=== PATIENT | female | born 1960 | race Caucasian/White ===

== ENCOUNTER 2017-03-18 05:41 | Emergency (ER) | payer MEDICAID ==
[2017-03-18 05:50] VITALS: BP 109/71; BMI 25.5
--- NOTE | 2017-03-18 07:05 | DR.GENAD ---
HPI - PCP Primary Care Physician: nfd - Complaint/Symptoms Chief Complaint:: pt states" I been sick for 4 days I got nausea and vomiting, cold and hot chills i don't feel good at all I'm sick" - Nurses notes reviewed Nurses Notes Review: Yes - Source History Provided: Patient - Mode of Arrival Mode of Arrival: Ambulatory - Timing Onset of Chief Complaint: 03/14/17 Came on: Suddenly - Duration Duration: Constant Duration: Days - Severity Severity: Moderate PMH - PMH Past Medical History: Yes Past Medical History: Diabetes, GERD, Hypertension Past Surgical History: Yes Surgical History: , Hysterectomy, Joint Replacement Past Surgical History Comment: rt hip 2005 - Family History History of Family Medical Conditions: Yes Family Medical History: Diabetes Mellitus, [place], Heart Failure, Hypertension - Social History Does any household member use tobacco: Yes Alcohol Use: None Do you use any recreational Drugs:: No Lives With: Family Lives Where: Home - infectious screening In the last 2 months have you had wt loss of >10#?: NO Have you had fever, night sweats or hemotysis?: No Have you traveled outside the country in the last 6 months?: No Isolation: Standard PE - Vital Signs Vitals: Temperature 98.6 F Pulse Rate 85 Respiratory Rate 18 Blood Pressure 109/71 O2 Sat by Pulse Oximetry 98 ROR - Labs Reviewed Result Diagrams: 03/18/17 07:20 03/18/17 07:20 Laboratory: WBC 9.5 X10^3/uL (3.6-10.0) 03/18/17 07:20 RBC 5.36 X10^6/uL (3.5-5.4) 03/18/17 07:20 Hgb 17.0 g/dL (12.0-16.0) H 03/18/17 07:20 Hct 48.0 % (36.0-47.0) H 03/18/17 07:20 MCV 89.6 fL (80.0-100.0) 03/18/17 07:20 MCH 31.7 pg (27.0-34.0) 03/18/17 07:20 MCHC 35.3 g/dL (33.0-35.0) H 03/18/17 07:20 RDW 14.1 % (11.6-16.5) 03/18/17 07:20 Plt Count 271 X10^3/uL (150.0-450.0) 03/18/17 07:20 MPV 8.3 fL (7.4-11.0) 03/18/17 07:20 Neut % 55.6 % (42.0-75.0) 03/18/17 07:20 Lymph % 38.0 % (21.0-51.0) 03/18/17 07:20 [place] % 5.4 % (0.0-13.0) 03/18/17 07:20 Eos % 0.3 % (0.9-2.9) L 03/18/17 07:20 Baso % 0.7 % (0.2-1.0) 03/18/17 07:20 Neut # 5.3 x10^3/uL (2.2-4.8) H 03/18/17 07:20 Lymph # 3.6 X10^3/uL (1.3-2.9) H 03/18/17 07:20 [place] # 0.5 x10^3/uL (0.3-0.8) 03/18/17 07:20 Eos # 0.0 x10^3/uL (0.0-0.2) 03/18/17 07:20 Baso # 0.1 X10^3/uL (0.0-0.1) 03/18/17 07:20 Absolute Nucleated RBC 0.2 /100WBC 03/18/17 07:20 Sodium 132 mmol/L (136-145) L 03/18/17 07:20 Corrected Sodium 133 mmol/L (136-145) L 03/18/17 07:20 Potassium 3.2 mmol/L (3.5-5.1) L 03/18/17 07:20 Chloride 93 mmol/L (98-107) L 03/18/17 07:20 Carbon Dioxide 32.3 mmol/L (21-32) H 03/18/17 07:20 BUN 6 mg/dL (7-18) L 03/18/17 07:20 Creatinine 0.86 mg/dL (0.55-1.02) 03/18/17 07:20 Est GFR (MDRD) Af Amer > 60 (>60) 02/02/18 07:20 Est GFR (MDRD) Non-Af > 60 (>60) 03/18/17 07:20 Glucose 131 mg/dL (65-99) H 03/18/17 07:20 Calcium 9.9 mg/dL (8.5-10.1) 03/18/17 07:20 Corrected Calcium TNP 03/18/17 07:20 Total Bilirubin 0.50 mg/dL (0.2-1.0) 03/18/17 07:20 AST 32 Units/L (15-37) 03/18/17 07:20 ALT 22 Units/L (12-78) 03/18/17 07:20 Alkaline Phosphatase 73 Units/L (46-116) 03/18/17 07:20 Total Protein 8.6 g/dL (6.4-8.2) H 03/18/17 07:20 Albumin 4.1 g/dL (3.4-5.0) 03/18/17 07:20 Globulin 4.5 g/dL (2.5-4.5) 03/18/17 07:20 Albumin/Globulin Ratio 0.9 Ratio (1.1-2.1) L 03/18/17 07:20 Amylase 43 Units/L (25-115) 03/18/17 07:20 Lipase 84 Units/L (73-393) 03/18/17 07:20 Influenza Type A (PCR) Negative (NEGATIVE) 03/18/17 07:13 Influenza Type B (PCR) Negative (NEGATIVE) 03/18/17 07:13 - Discharge Plan Condition: Stable Prescriptions: Ketorolac Tromethamine [Toradol Tab] 10 mg PO Q8H PRN #12 tab PRN Reason: Pain Ondansetron [Zofran ODT 8 mg] 8 mg PO Q8H PRN #15 tab PRN Reason: Nausea/Vomiting Ranitidine HCl [ZANTAC TAB 150 MG *] 150 mg PO BID #60 tab - Follow ups/Referrals Follow ups/Referrals: NFD,None [Primary Care Provider] - 3 days - Instructions Instructions: Abdominal Pain, Adult, [id number] Additional Instructions: RETURN TO ED IF WORSE.
[2017-03-18] MEDS ORDERED: ZOFRAN INJ 4 MG VIAL IVP ONE (07:10)
[2017-03-18] MEDS ORDERED: DEMEROL INJ IVP ONE (07:10)
--- NOTE | 2017-03-18 07:37 | CT ---
HISTORY: Nausea, vomiting, abdominal pain Study: CT abdomen pelvis without contrast Comparison: None Technique: Axial noncontrast images with coronal and sagittal reformats. Dose reduction procedures we re used with mA/kv adjusted for body size. The examination is limited due to the lack of intravenous contrast. Findings: The lung bases are clear. The liver, spleen, adrenal glands, and pancreas are within normal limits to the limitations of an unenhanced examination. No opaque stones are visible within the gallbladder. T he kidneys are unobstructed and without stones. No ureteral calculi are identified. No intraperitonea l or retroperitoneal lymphadenopathy of significance is identified. The appendix is not identified wi th absolute certainty. There are no secondary signs of appendicitis. There are no findings suggestive of diverticulitis or colitis. Examination of the pelvis demonstrated no evidence for pelvic masses, pelvic fluid, or pelvic lymphadenopathy. No bladder abnormality is identified. No lytic or blastic sk eletal lesions are identified. IMPRESSION: No significant abnormality to the limitations of an examination performed without intravenous contras t Reported By:
[2017-03-18 07:38] LABS: BASOPHILS # (AUTO) 0.1 X10^3/uL (0.0-0.1); BASOPHILS % (AUTO) 0.7 % (0.2-1.0); EOSINOPHILS % (AUTO) 0.3 % (0.9-2.9); LYMPHOCYTES # (AUTO) 3.6 X10^3/uL (1.3-2.9); MEAN CORPUSCULAR HEMOGLOBIN 31.7 pg (27.0-34.0); MEAN CORPUSCULAR HGB CONC 35.3 g/dL (33.0-35.0); MEAN CORPUSCULAR VOLUME 89.6 fL (80.0-100.0); MEAN PLATELET VOLUME 8.3 fL (7.4-11.0); MONOCYTES # (AUTO) 0.5 x10^3/uL (0.3-0.8); MONOCYTES % (AUTO) 5.4 % (0.0-13.0); NEUTROPHILS # (AUTO) 5.3 x10^3/uL (2.2-4.8); NEUTROPHILS % (AUTO) 55.6 % (42.0-75.0); PLATELET COUNT 271 X10^3/uL (150.0-450.0); RED BLOOD COUNT 5.36 X10^6/uL (3.5-5.4); RED CELL DISTRIBUTION WIDTH 14.1 % (11.6-16.5); WHITE BLOOD COUNT 9.5 X10^3/uL (3.6-10.0)
[2017-03-18 07:44] LABS: ALANINE AMINOTRANSFERASE 22 Units/L (12-78); ALBUMIN 4.1 g/dL (3.4-5.0); ALKALINE PHOSPHATASE 73 Units/L (46-116); AMYLASE 43 Units/L (25-115); ASPARTATE AMINO TRANSFERASE 32 Units/L (15-37); BLOOD UREA NITROGEN 6 mg/dL (7-18); CALCIUM 9.9 mg/dL (8.5-10.1); CARBON DIOXIDE 32.3 mmol/L (21-32); CHLORIDE 93 mmol/L (98-107); COR NA(FOR HYPERGLY) 133 mmol/L (136-145); CREATININE 0.86 mg/dL (0.55-1.02); LIPASE 84 Units/L (73-393); SODIUM 132 mmol/L (136-145); TOTAL PROTEIN 8.6 g/dL (6.4-8.2); eGFR BLACK RACES > 60 (>60); eGFR NON BLACK RACES > 60 (>60)
[2017-03-18] MEDS ORDERED: TORADOL 60 MG VIAL IM ONE (07:44)
[2017-03-18] MEDS ORDERED: TORADOL 60 MG VIAL ONE (08:20)
[2017-03-18] MEDS ORDERED: ZOFRAN INJ 4 MG VIAL ONE (08:35)
[2017-03-18] MEDS ORDERED: ZOFRAN INJ 4 MG VIAL IM ONE (08:40)
[2017-03-18 09:07] LABS: BILIRUBIN,URINE NEGATIVE (NEGATIVE); BLOOD/HEMOGLOBIN,URINE NEGATIVE (NEGATIVE); GLUCOSE, URINE NEGATIVE (NEGATIVE); KETONES,URINE NEGATIVE (NEGATIVE); LEUKOCYTE ESTERASE ,URINE NEGATIVE (NEGATIVE); NITRITES,URINE NEGATIVE (NEGATIVE); PROTEIN,URINE NEGATIVE (NEGATIVE); UROBILINOGEN,URINE NORMAL (NORMAL)
[2017-03-18 09:09] LABS: APPEARANCE,URINE CLEAR (CLEAR); COLOR,URINE YELLOW (YELLOW)
[2017-03-18 09:15] LABS: BACTERIA,URINE TRACE /HPF (NEGATIVE); RBC,URINE NONE SEEN /HPF (NEGATIVE); SQUAMOUS EPITHELIAL CELL,UR MANY /HPF (NEGATIVE)
== END 2017-03-18 08:53 | disposition home or self-care (01) ==
LOC: ER 05:41
DX: R10.84 Generalized abdominal pain (principal); R11.2 Nausea with vomiting, unspecified
CPT/HCPCS: 36415; 74176; 80053; 81001; 82150; 83690; 85025; 87502; 96372; 99282; 99283; J1885; J2405

== ENCOUNTER 2017-03-25 18:30 | Inpatient (IN) | payer MEDICAID ==
--- NOTE | 2017-03-25 19:04 | DR.EXTPAIN ---
HPI - Time seen Time seen: 18:55 - PCP Primary Care Physician: CARLOS - HPI Comment HPI Comment: HAVING CHEST PAIN, LOWER BACK PAIN, HEADACHE AND NECK DISCOMFORT. NO FEVER. SHE IS WEAK. NO FEVER. - Complaint/Symptoms Chief Complaint Doctor Comments: FELL FROM HER BED LAST NIGHT. WAS WEAK AND LAY THERE TILL SOMEONE FOUND HER BEFORE COMING TO ED. Chief Complaint:: PATIENT STATED THAT SHE WAS IN HER BEDROOM LAST NIGHT AND FELL AND WAS TO WEAK TO GET UP. SOMEONE FOUND HER JUST 25 MINS PRIOR TO ARRIVAL TO THE ED. - Nurses notes reviewed Nurses Notes Review: Yes - Source History Provided: Patient - Mode of arrival Mode of Arrival: EMS - Timing Onset of Chief Complaint: 03/25/17 - Context History of: Arthritis - Associated signs and symptoms Associated Signs and Symptoms: Pain PMH - PMH Past Medical History: Yes Past Medical History: Diabetes, GERD, Hypertension Past Surgical History: Yes Surgical History: , Hysterectomy, Joint Replacement - Family History History of Family Medical Conditions: Yes Family Medical History: Diabetes Mellitus, [place], Heart Failure, Hypertension - Social History Does patient currently use any type of tobacco product: No Have you used tobacco products in the last 12 months: No Type of Tobacco Use: None Does any household member use tobacco: No Alcohol Use: None Do you use any recreational Drugs:: No Lives With: Alone Lives Where: Home - infectious screening In the last 2 months have you had wt loss of >10#?: NO Have you had fever, night sweats or hemotysis?: No Have you traveled outside the country in the last 6 months?: No Isolation: Standard ROS - Review of Systems Constitutional: Weakness, Fatigue. negative: Chills, Fever Eyes: negative: Eye Pain, Discharge ENTM: No Symptoms Reported Respiratoy: No Symptoms Reported. negative: Productive Cough, Non-Productive Cough, Short of Breath, Wheezing, Hemoptysis Cardiovascular: Chest Pain Gastrointestinal/Abdominal: No Symptoms Reported Genitourinary: No Symptoms Reported Neurological: Headache, Weakness, Dizziness Musculoskeletal: Back Pain, Muscle Pain, Neck Pain, Chest wall Integumentary: Change in Color Hematologic/Lymphatic: Easy Bruising Endocrine: No Symptoms Reported All Other Systems: Reviewed and Negative PE - Vital Signs Vitals: Temperature 98.2 F Pulse Rate 98 Respiratory Rate 20 Blood Pressure 129/79 O2 Sat by Pulse Oximetry 95 - General Limitations: No Limitations General Appearance: Alert - Head Head Exam: Normal Inspection - Eyes Eye exam: Normal Appearance, PERRL, EOMI. negative: Scleral Icterus, Conjunctival Injection - ENT ENT Exam: Normal External Ear Exam - Neck Neck Exam: Trachea Midline, Tenderness (POSTERIOR LOWER NECK TENDER. ). negative: Meningismus, Lymphadenopathy - Chest Chest Inspection: Symmetric Chest Wall Rise - Respiratory Respiratory Exam: Normal Lung Sounds Bilat, Chest Wall Tenderness Respiratory Exam: Bilateral Clear to Auscultation - Cardiovascular Cardiovascular Exam: Regular Rate, Normal Rhythm, Normal Heart Sounds - Abdominal Exam Abdominal Exam: Normal Bowel Sounds, Soft. negative: Tenderness - Extremities Extremities Exam: Normal Inspection - Back Back Exam: Paraspinal Tenderness, Vertebral Tenderness (LOWER BACK.) - Neurological Neurological Exam: Alert, Oriented X3, CN II-XII Intact. negative: Motor Sensory Deficit - Psychiatric Psychiatric Exam: Anxious - Skin Skin Exam: Erythema Type of Lesion: negative: Laceration MDM - Differential Diagnosis Differential Diagnosis: Contusion, Fracture, Sprain (GENERALIZE WEAKNESS, CT, DEHYDRATION) Course - Treatment Treatment: SEE ORDERS. - Consultation Consultation Comments: DISCUSS PATIENT WITH DR. YUAN, HE WILL ACCEPT PATIENT. - Education/Counseling Education/Counseling: Patient, Education Educated On: Treatment, Diagnosis, Needs for Follow Up ROR - Labs Reviewed Laboratory Results Reviewed?: Yes Result Diagrams: 03/27/17 04:20 03/27/17 04:20 Laboratory: WBC 12.2 X10^3/uL (3.6-10.0) H 03/25/17 19:17 RBC 4.50 X10^6/uL (3.5-5.4) 03/25/17 19:17 Hgb 14.0 g/dL (12.0-16.0) 03/25/17 19:17 Hct 40.4 % (36.0-47.0) 03/25/17 19:17 MCV 89.7 fL (80.0-100.0) 03/25/17 19:17 MCH 31.0 pg (27.0-34.0) 03/25/17 19:17 MCHC 34.5 g/dL (33.0-35.0) 03/25/17 19:17 RDW 13.9 % (11.6-16.5) 03/25/17 19:17 Plt Count 184 X10^3/uL (150.0-450.0) 03/25/17 19:17 MPV 8.3 fL (7.4-11.0) 03/25/17 19:17 Neut % 77.8 % (42.0-75.0) H 03/25/17 19:17 Lymph % 17.4 % (21.0-51.0) L 03/25/17 19:17 [place] % 4.4 % (0.0-13.0) 03/25/17 19:17 Eos % 0.0 % (0.9-2.9) L 03/25/17 19:17 Baso % 0.4 % (0.2-1.0) 03/25/17 19:17 Neut # 9.5 x10^3/uL (2.2-4.8) H 03/25/17 19:17 Lymph # 2.1 X10^3/uL (1.3-2.9) 03/25/17 19:17 [place] # 0.5 x10^3/uL (0.3-0.8) 03/25/17 19:17 Eos # 0.0 x10^3/uL (0.0-0.2) 03/25/17 19:17 Baso # 0.1 X10^3/uL (0.0-0.1) 03/25/17 19:17 Absolute Nucleated RBC 0.0 /100WBC 03/25/17 19:17 Sodium 142 mmol/L (136-145) 03/25/17 19:17 Corrected Sodium TNP 03/25/17 19:17 Potassium 2.7 mmol/L (3.5-5.1) L* 03/25/17 19:17 Chloride 105 mmol/L (98-107) 03/25/17 19:17 Carbon Dioxide 29.6 mmol/L (21-32) 03/25/17 19:17 BUN 10 mg/dL (7-18) 03/25/17 19:17 Creatinine 0.76 mg/dL (0.55-1.02) 03/25/17 19:17 Est GFR (MDRD) Af Amer > 60 (>60) 03/25/17 19:17 Est GFR (MDRD) Non-Af > 60 (>60) 02/09/18 19:17 Glucose 105 mg/dL (65-99) H 03/25/17 19:17 Calcium 9.4 mg/dL (8.5-10.1) 03/25/17 19:17 Corrected Calcium 10.0 mg/dL (8.5-10.1) 03/25/17 19:17 Total Bilirubin 0.80 mg/dL (0.2-1.0) 03/25/17 19:17 AST 58 Units/L (15-37) H 03/25/17 19:17 ALT 20 Units/L (12-78) 03/25/17 19:17 Alkaline Phosphatase 56 Units/L (46-116) 03/25/17 19:17 Creatine Kinase 3282 Units/L (26-192) H 03/25/17 22:08 CK-MB (CK-2) 8.3 ng/mL (0-4.0) H* 03/25/17 22:08 CK/CKMB % Calc 0.3 % (<4) 03/25/17 22:08 Troponin I 0.04 ng/mL (0-1.5) 03/25/17 22:08 Total Protein 7.0 g/dL (6.4-8.2) 03/25/17 19:17 Albumin 3.2 g/dL (3.4-5.0) L 03/25/17 19:17 Globulin 3.8 g/dL (2.5-4.5) 03/25/17 19:17 Albumin/Globulin Ratio 0.8 Ratio (1.1-2.1) L 03/25/17 19:17 Specimen Type Clean catch urine 03/25/17 19:42 Urine Color Yellow (YELLOW) 03/25/17 19:42 Urine Appearance Clear (CLEAR) 03/25/17 19:42 Urine pH 6.5 (5.0 - 8.0) 03/25/17 19:42 Ur Specific [place] 1.005 (1.000-1.030) 03/25/17 19:42 Urine Protein Negative (NEGATIVE) 03/25/17 19:42 Urine Glucose (UA) Negative (NEGATIVE) 03/25/17 19:42 Urine Ketones Negative (NEGATIVE) 03/25/17 19:42 Urine Occult Blood Negative (NEGATIVE) 03/25/17 19:42 Urine Nitrite Negative (NEGATIVE) 03/25/17 19:42 Urine Bilirubin Negative (NEGATIVE) 03/25/17 19:42 Urine Urobilinogen Normal (NORMAL) 03/25/17 19:42 Ur Leukocyte Esterase Negative (NEGATIVE) 03/25/17 19:42 Urine RBC Neg /HPF (NEGATIVE) 03/25/17 19:42 Urine WBC 0-2 /HPF (NEGATIVE) 03/25/17 19:42 Ur Squamous Epith Cells Few /HPF (NEGATIVE) 03/25/17 19:42 Urine Bacteria Negative /HPF (NEGATIVE) 03/25/17 19:42 Ur Culture Indicated? No/not indicated 03/25/17 19:42 - XRAY XRAY Interpreted by: Radiologist XRAY Findings: REPORT DISCUSS WITH PATIENT AND HER DAUGHTER. - EKG Rhythm: SB (EKG NOTED.) - Diagnosis Discharge Problem: Generalized weakness, Hyponatremia, Multiple contusions Rhabdomyolysis Qualifiers: Rhabdomyolysis type: traumatic Encounter type: initial encounter Qualified Code (s): T79.6XXA - Traumatic ischemia of muscle, initial encounter - Discharge Plan Disposition: ADMITTED INPATIENT Condition: Stable - Follow ups/Referrals - Instructions
[2017-03-25 19:29] LABS: BASOPHILS # (AUTO) 0.1 X10^3/uL (0.0-0.1); BASOPHILS % (AUTO) 0.4 % (0.2-1.0); HEMATOCRIT 40.4 % (36.0-47.0); LYMPHOCYTES # (AUTO) 2.1 X10^3/uL (1.3-2.9); LYMPHOCYTES % (AUTO) 17.4 % (21.0-51.0); MEAN CORPUSCULAR HGB CONC 34.5 g/dL (33.0-35.0); MEAN CORPUSCULAR VOLUME 89.7 fL (80.0-100.0); MEAN PLATELET VOLUME 8.3 fL (7.4-11.0); MONOCYTES # (AUTO) 0.5 x10^3/uL (0.3-0.8); MONOCYTES % (AUTO) 4.4 % (0.0-13.0); NEUTROPHILS # (AUTO) 9.5 x10^3/uL (2.2-4.8); NEUTROPHILS % (AUTO) 77.8 % (42.0-75.0); PLATELET COUNT 184 X10^3/uL (150.0-450.0); RED CELL DISTRIBUTION WIDTH 13.9 % (11.6-16.5); WHITE BLOOD COUNT 12.2 X10^3/uL (3.6-10.0)
--- NOTE | 2017-03-25 19:41 | CT ---
CT brain without contrast Indication: Headache after trauma Comparison: None available Technique: Multiple axial images of the brain were obtained from the skull base to the vertex without administra tion of IV contrast. Findings: Mild generalized cerebral atrophy. There is also mild bilateral periventricular hypoattenuation which is nonspecific however likely represent sequela of chronic microvascular ischemic disease. No acute intraparenchymal hemorrhage or mass can be identified. No extra-axial fluid collections are seen. No alteration in the attenuation of the brain parenchyma can be identified to suggest acute o r subacute ischemic change. The ventricular system is symmetric and nondilated. The extracranial st ructures are grossly unremarkable. IMPRESSION: 1. No acute intracranial process is identified. Reported By:
--- NOTE | 2017-03-25 19:45 | CT ---
CT of the cervical spine Indication: Trauma with neck pain. Comparison: None Findings: There is no fracture involving the cervical spine. There is advanced discogenic degenerativ e disease at C6-C7 and moderate degenerative changes at C5-C6. There are posterior disc osteophyte co mplexes and uncovertebral hypertrophy at this level causing central canal stenosis. Conclusion: No evidence of fracture involving the cervical spine. Multilevel degenerative changes as described above Reported By:
--- NOTE | 2017-03-25 19:50 | CT ---
CT lumbar spine without contrast Indication: Unwitnessed fall with back pain Comparison: None available Technique: Multiple axial images of the lumbar spine were obtained from the upper abdomen to the pelv is without administration of IV contrast. Sagittal and coronal reformats were performed and reviewed . Findings: Alignment of the lumbar spine is maintained. No evidence for acute cortical disruption or subluxatio n can be seen. The posterior elements appear unremarkable. The prevertebral soft tissues are normal in their appearance. In addition, the surrounding paraspinous soft tissues are unremarkable. There is mild spondylosis at L1-2, L3-4, L4-5. Mild degenerative change both SI joints as well. Urina ry bladder is mildly distended. Scattered diverticula within the distal colon. Previous right hip rep lacement limits evaluation of the pelvis. IMPRESSION: No evidence for traumatic injury of the lumbar spine. Degenerative/chronic changes as described above. Reported By:
[2017-03-25 19:57] LABS: BILIRUBIN,URINE NEGATIVE (NEGATIVE); BLOOD/HEMOGLOBIN,URINE NEGATIVE (NEGATIVE); GLUCOSE, URINE NEGATIVE (NEGATIVE); KETONES,URINE NEGATIVE (NEGATIVE); LEUKOCYTE ESTERASE ,URINE NEGATIVE (NEGATIVE); NITRITES,URINE NEGATIVE (NEGATIVE); PH,URINE 6.5 (5.0 - 8.0); PROTEIN,URINE NEGATIVE (NEGATIVE); UROBILINOGEN,URINE NORMAL (NORMAL)
[2017-03-25 20:03] LABS: APPEARANCE,URINE CLEAR (CLEAR); COLOR,URINE YELLOW (YELLOW); RBC,URINE NEG /HPF (NEGATIVE)
[2017-03-25 20:04] LABS: BACTERIA,URINE NEGATIVE /HPF (NEGATIVE); SQUAMOUS EPITHELIAL CELL,UR FEW /HPF (NEGATIVE)
[2017-03-25 20:05] LABS: ALANINE AMINOTRANSFERASE 20 Units/L (12-78); ALBUMIN 3.2 g/dL (3.4-5.0); ALKALINE PHOSPHATASE 56 Units/L (46-116); ASPARTATE AMINO TRANSFERASE 58 Units/L (15-37); BLOOD UREA NITROGEN 10 mg/dL (7-18); CALCIUM 9.4 mg/dL (8.5-10.1); CARBON DIOXIDE 29.6 mmol/L (21-32); CHLORIDE 105 mmol/L (98-107); CREATININE 0.76 mg/dL (0.55-1.02); SODIUM 142 mmol/L (136-145); TROPONIN I 0.03 ng/mL (0-1.5); eGFR BLACK RACES > 60 (>60); eGFR NON BLACK RACES > 60 (>60)
--- NOTE | 2017-03-25 20:14 | CT ---
CT of the chest without Indication: Trauma with chest pain. Findings: The lungs are clear except for a 5 mm nodule within the left lower lobe and hazy ground-gla ss opacities. No pneumothorax is seen. No pleural effusion is noted. The great vessels are unremarkab le. The airway is patent. There is no mediastinal or axillary lymphadenopathy. Images of the upper ab domen are unremarkable. The bone windows show no evidence of fracture mild multilevel discogenic dege nerative disease of the thoracic spine. Conclusion: 1. No evidence of intrathoracic trauma. 2. 5 mm left lower lobe nodule is nonspecific. Follow-up in 3-6 months is recommended to document sta bility. 3. Ground-glass opacities within the left lower lobe may represent pulmonary contusions given the his tory of trauma versus early atelectasis. Reported By:
[2017-03-25 20:19] LABS: CKMB % 0.4 % (<4); CREATINE KINASE MB 9.1 ng/mL (0-4.0)
[2017-03-25 20:20] LABS: CREATINE KINASE 2553 Units/L (26-192)
[2017-03-25] MEDS ORDERED: POTASSIUM CHLORIDE LIQ 20 MEQ UDC PO ONE (20:57)
[2017-03-25] MEDS ORDERED: K-DUR TAB 20 MEQ PO ONE (21:44)
[2017-03-25] MEDS ORDERED: NS + KCL 40 MEQ/L 1,000 ML IV SCH (22:00)
[2017-03-26 00:02] LABS: TROPONIN I 0.04 ng/mL (0-1.5)
[2017-03-26 00:04] LABS: CKMB % 0.3 % (<4)
[2017-03-26 00:05] LABS: CREATINE KINASE MB 8.3 ng/mL (0-4.0)
[2017-03-26] MEDS ORDERED: POTASSIUM CHL 40 MEQ/NS 0.45% 500 ML 40 MEQ/500 ML BAG IV ONE (02:56)
[2017-03-26] MEDS ORDERED: NS + KCL 20 MEQ/L 1,000 ML IV ONE (02:57)
[2017-03-26] MEDS ORDERED: POTASSIUM CHL 60 MEQ/NS 0.45% 500 ML 60 MEQ/500 ML BAG IV PRN (03:00)
[2017-03-26] MEDS ORDERED: POTASSIUM CHL 60 MEQ/NS 0.45% 500 ML 60 MEQ/500 ML BAG IV NR ×2 (03:00)
[2017-03-26] MEDS: NS + KCL 20 MEQ/L 1,000 ML IV SCH ×3 (03:03→18:36)
[2017-03-26] MEDS ORDERED: NORCO 5/325 MG TAB ONE (03:17)
[2017-03-26] MEDS: NORCO 5/325 MG TAB PO PRN ×3 (03:53→18:36)
[2017-03-26 04:33] VITALS: BMI 24.1
[2017-03-26] MEDS: XANAX PO PRN ×2 (05:50→18:36)
[2017-03-26 06:19] LABS: BASOPHILS % (AUTO) 0.4 % (0.2-1.0); EOSINOPHILS % (AUTO) 0.4 % (0.9-2.9); HEMATOCRIT 37.1 % (36.0-47.0); HEMOGLOBIN 13.1 g/dL (12.0-16.0); LYMPHOCYTES # (AUTO) 3.2 X10^3/uL (1.3-2.9); LYMPHOCYTES % (AUTO) 34.4 % (21.0-51.0); MEAN CORPUSCULAR HEMOGLOBIN 31.3 pg (27.0-34.0); MEAN CORPUSCULAR HGB CONC 35.4 g/dL (33.0-35.0); MEAN CORPUSCULAR VOLUME 88.6 fL (80.0-100.0); MEAN PLATELET VOLUME 8.7 fL (7.4-11.0); MONOCYTES # (AUTO) 0.5 x10^3/uL (0.3-0.8); MONOCYTES % (AUTO) 5.3 % (0.0-13.0); NEUTROPHILS # (AUTO) 5.5 x10^3/uL (2.2-4.8); NEUTROPHILS % (AUTO) 59.5 % (42.0-75.0); PLATELET COUNT 154 X10^3/uL (150.0-450.0); RED BLOOD COUNT 4.19 X10^6/uL (3.5-5.4); RED CELL DISTRIBUTION WIDTH 13.9 % (11.6-16.5); WHITE BLOOD COUNT 9.2 X10^3/uL (3.6-10.0)
[2017-03-26 06:31] LABS: ALANINE AMINOTRANSFERASE 18 Units/L (12-78); ALBUMIN 2.8 g/dL (3.4-5.0); ALKALINE PHOSPHATASE 47 Units/L (46-116); ASPARTATE AMINO TRANSFERASE 61 Units/L (15-37); BLOOD UREA NITROGEN 9 mg/dL (7-18); CALCIUM 8.7 mg/dL (8.5-10.1); CARBON DIOXIDE 28.6 mmol/L (21-32); CHLORIDE 105 mmol/L (98-107); COR CA(FOR HYPOALB) 9.7 mg/dL (8.5-10.1); CREATININE 0.61 mg/dL (0.55-1.02); MAGNESIUM 1.5 mg/dL (1.7-2.9); TOTAL PROTEIN 6.2 g/dL (6.4-8.2); eGFR BLACK RACES > 60 (>60); eGFR NON BLACK RACES > 60 (>60)
[2017-03-26 07:03] LABS: SODIUM 138 mmol/L (136-145)
[2017-03-26 07:10] LABS: TROPONIN I < 0.02 ng/mL (0-1.5)
[2017-03-26 07:13] LABS: CKMB % 0.2 % (<4); CREATINE KINASE MB 5.3 ng/mL (0-4.0)
[2017-03-26 07:14] LABS: CREATINE KINASE 3242 Units/L (26-192)
[2017-03-26 11:30] LABS: CREATINE KINASE MB 3.8 ng/mL (0-4.0); TROPONIN I < 0.02 ng/mL (0-1.5)
[2017-03-26 11:33] LABS: CKMB % 0.1 % (<4); CREATINE KINASE 2686 Units/L (26-192)
[2017-03-26] MEDS ORDERED: MAGNESIUM SULFATE 1 GM/100 mL PREMIX 1 GM/100 ML BAG IV PRN ×2 (12:11→16:05)
[2017-03-26] MEDS ORDERED: POTASSIUM CHL 60 MEQ/NS 0.45% 500 ML IV PRN (16:05)
[2017-03-26] MEDS ORDERED: MAG-OX TAB PO PRN (16:05)
[2017-03-26] MEDS ORDERED: K-RIDER 10 MEQ/NS 100 ML 10 MEQ/100 ML BAG IV PRN (16:05)
[2017-03-26] MEDS ORDERED: K-LYTE EFFERVESCENT PO PRN (16:05)
[2017-03-26] MEDS ORDERED: POTASSIUM CHL 40 MEQ/NS 0.45% 500 ML IV PRN (16:05)
[2017-03-26] MEDS ORDERED: POTASSIUM CHLORIDE LIQ 20 MEQ UDC PO PRN (16:05)
[2017-03-26] MEDS ORDERED: HumuLIN R SUBCUT PRN (18:22)
[2017-03-26] MEDS: SNACK - Diabetic Appropriate PO SCH (21:10)
[2017-03-26] MEDS: COLACE CAP 100 MG PO SCH (21:10)
[2017-03-26] MEDS: MAALOX or MYLANTA PO PRN (21:11)
[2017-03-26] MEDS: MILK OF MAGNESIA PO SCH (21:11)
[2017-03-27] MEDS: NS + KCL 20 MEQ/L 1,000 ML IV SCH ×3 (05:59→21:04)
[2017-03-27 06:11] LABS: BASOPHILS % (AUTO) 0.2 % (0.2-1.0); EOSINOPHILS % (AUTO) 0.7 % (0.9-2.9); HEMATOCRIT 34.3 % (36.0-47.0); LYMPHOCYTES # (AUTO) 2.5 X10^3/uL (1.3-2.9); LYMPHOCYTES % (AUTO) 44.8 % (21.0-51.0); MEAN CORPUSCULAR HEMOGLOBIN 31.6 pg (27.0-34.0); MEAN CORPUSCULAR HGB CONC 34.9 g/dL (33.0-35.0); MEAN CORPUSCULAR VOLUME 90.5 fL (80.0-100.0); MEAN PLATELET VOLUME 9.2 fL (7.4-11.0); MONOCYTES # (AUTO) 0.3 x10^3/uL (0.3-0.8); MONOCYTES % (AUTO) 5.3 % (0.0-13.0); NEUTROPHILS # (AUTO) 2.7 x10^3/uL (2.2-4.8); PLATELET COUNT 133 X10^3/uL (150.0-450.0); RED BLOOD COUNT 3.79 X10^6/uL (3.5-5.4); RED CELL DISTRIBUTION WIDTH 14.4 % (11.6-16.5); WHITE BLOOD COUNT 5.6 X10^3/uL (3.6-10.0)
[2017-03-27 06:44] LABS: ALANINE AMINOTRANSFERASE 16 Units/L (12-78); ALBUMIN 2.4 g/dL (3.4-5.0); ALKALINE PHOSPHATASE 45 Units/L (46-116); ASPARTATE AMINO TRANSFERASE 49 Units/L (15-37); BLOOD UREA NITROGEN 7 mg/dL (7-18); CALCIUM 7.9 mg/dL (8.5-10.1); CARBON DIOXIDE 29.3 mmol/L (21-32); CHLORIDE 109 mmol/L (98-107); COR CA(FOR HYPOALB) 9.2 mg/dL (8.5-10.1); COR NA(FOR HYPERGLY) 143 mmol/L (136-145); CREATININE 0.66 mg/dL (0.55-1.02); SODIUM 142 mmol/L (136-145); TOTAL PROTEIN 5.7 g/dL (6.4-8.2); eGFR BLACK RACES > 60 (>60); eGFR NON BLACK RACES > 60 (>60)
[2017-03-27] MEDS: MILK OF MAGNESIA PO SCH ×3 (08:25→21:07)
[2017-03-27 12:49] LABS: CREATINE KINASE MB 1.8 ng/mL (0-4.0); TROPONIN I < 0.02 ng/mL (0-1.5)
[2017-03-27 12:52] LABS: CKMB % 0.1 % (<4); CREATINE KINASE 1400 Units/L (26-192)
[2017-03-27] MEDS: XANAX PO PRN ×2 (12:55→21:04)
[2017-03-27] MEDS: ZESTORETIC 10/ 12.5MG PO SCH (15:21)
[2017-03-27] MEDS: PLAVIX PO SCH (15:21)
[2017-03-27] MEDS ORDERED: GLUCOPHAGE ONE (18:42)
[2017-03-27] MEDS: NORCO 5/325 MG TAB PO PRN (18:50)
[2017-03-27] MEDS: GLUCOPHAGE PO SCH (18:50)
[2017-03-27] MEDS: COLACE CAP 100 MG PO SCH (21:04)
[2017-03-27] MEDS: NEURONTIN CAP 100 MG PO SCH (21:06)
[2017-03-27] MEDS: SNACK - Diabetic Appropriate PO SCH (21:06)
[2017-03-27] MEDS: MAALOX or MYLANTA PO PRN (21:15)
[2017-03-28] MEDS: NORCO 5/325 MG TAB PO PRN ×2 (01:39→09:08)
[2017-03-28] MEDS: XANAX PO PRN (01:39)
[2017-03-28] MEDS: NS + KCL 20 MEQ/L 1,000 ML IV SCH ×2 (03:32→08:28)
[2017-03-28 05:31] LABS: BASOPHILS % (AUTO) 0.6 % (0.2-1.0); EOSINOPHILS % (AUTO) 0.7 % (0.9-2.9); HEMOGLOBIN 11.7 g/dL (12.0-16.0); LYMPHOCYTES # (AUTO) 2.7 X10^3/uL (1.3-2.9); LYMPHOCYTES % (AUTO) 55.6 % (21.0-51.0); MEAN CORPUSCULAR HEMOGLOBIN 31.2 pg (27.0-34.0); MEAN CORPUSCULAR HGB CONC 34.4 g/dL (33.0-35.0); MEAN CORPUSCULAR VOLUME 90.9 fL (80.0-100.0); MEAN PLATELET VOLUME 8.9 fL (7.4-11.0); MONOCYTES # (AUTO) 0.3 x10^3/uL (0.3-0.8); MONOCYTES % (AUTO) 5.3 % (0.0-13.0); NEUTROPHILS # (AUTO) 1.8 x10^3/uL (2.2-4.8); NEUTROPHILS % (AUTO) 37.8 % (42.0-75.0); PLATELET COUNT 130 X10^3/uL (150.0-450.0); RED BLOOD COUNT 3.74 X10^6/uL (3.5-5.4); RED CELL DISTRIBUTION WIDTH 14.1 % (11.6-16.5); WHITE BLOOD COUNT 4.8 X10^3/uL (3.6-10.0)
[2017-03-28] MEDS: NEURONTIN CAP 100 MG PO SCH (05:39)
[2017-03-28 06:00] LABS: ALANINE AMINOTRANSFERASE 17 Units/L (12-78); ALBUMIN 2.5 g/dL (3.4-5.0); ALKALINE PHOSPHATASE 38 Units/L (46-116); ASPARTATE AMINO TRANSFERASE 34 Units/L (15-37); BLOOD UREA NITROGEN 6 mg/dL (7-18); CALCIUM 7.9 mg/dL (8.5-10.1); CARBON DIOXIDE 25.2 mmol/L (21-32); CHLORIDE 109 mmol/L (98-107); CKMB % 0.2 % (<4); COR CA(FOR HYPOALB) 9.1 mg/dL (8.5-10.1); CREATINE KINASE 684 Units/L (26-192); SODIUM 139 mmol/L (136-145); TOTAL PROTEIN 5.8 g/dL (6.4-8.2); TROPONIN I < 0.02 ng/mL (0-1.5); eGFR BLACK RACES > 60 (>60); eGFR NON BLACK RACES > 60 (>60)
[2017-03-28] MEDS ORDERED: GLUCOPHAGE ONE (08:54)
[2017-03-28] MEDS: ZESTORETIC 10/ 12.5MG PO SCH (09:06)
[2017-03-28] MEDS: GLUCOPHAGE PO SCH (09:06)
[2017-03-28] MEDS: PLAVIX PO SCH (09:07)
[2017-03-28] MEDS: MILK OF MAGNESIA PO SCH ×2 (09:07)
[2017-03-28 13:35] VITALS: BP 137/77
== END 2017-03-28 15:53 | disposition home or self-care (01) | DRG 558 ==
LOC: ER 18:36 → MED/SURG 03-26 00:07 → INTOOBSV 03-26 00:07 → OBSVTOIN 03-26 00:07 → UNDOADMOB 03-26 00:07
PROVIDERS: ADMIT Internal Medicine; ATTEND Internal Medicine
DX: M62.82 Rhabdomyolysis (principal); R53.1 Weakness; E87.1 Hypo-osmolality and hyponatremia; R07.89 Other chest pain; E87.6 Hypokalemia; M54.5 Low back pain; E11.65 Type 2 diabetes mellitus with hyperglycemia; K21.9 Gastro-esophageal reflux disease without esophagitis; I10 Essential (primary) hypertension; Z91.81 History of falling; W18.39XA Other fall on same level, initial encounter; Z79.1 Long term (current) use of non-steroidal anti-inflammatories (NSAID); T14.8XXA Other injury of unspecified body region, initial encounter
CPT/HCPCS: 36415; 70450; 71250; 72125; 72131; 80053; 80307; 81001; 82550; 82553; 83735; 84132; 84484; 85025; 85610; 85730; 93005; 93010; 94760; 96365; 99284; A4222; G0434; J1815

== ENCOUNTER 2019-05-24 13:15 | Inpatient (IN) ==
--- NOTE | 2019-05-24 13:54 | RAD ---
HISTORY: [Cough]. [Dyspnea].[Single portable view the chest] of the chest.Comparison: [Chest examination dated March 25, 2017].Findings:The trachea is midline. The cardiac silhouette is unremarkable. There are increased [perihilar] interstitial opacities seen, suggesting [central bronchitis or a viral respiratory tract infection]. Please correlate clinically medically for assurance. The lungs [are otherwise clear without focal infiltrate or effusion]. The bony thorax [is unremarkable].IMPRESSION:Radiographic findings suggesting [central bronchitis].[No lobar pneumonia or pleural effusion seen].Electronically signed by: TERENCE PANDYA III (May 24, 2019 13:52:11)
--- NOTE | 2019-05-24 13:54 | CT ---
HISTORYConfusionSTUDYCT brain without contrastCOMPARISONFebruary 2018TECHNIQUEMultiple axial images of the brain were obtained from the skull base to the vertex [without] administration of IV contrast.Dose reduction techniques including Automated Exposure Control (AEC) and adjustment of mA and kV were utlized.FINDINGS[No acute intraparenchymal hemorrhage or mass can be identified.] [No extra-axial fluid collections are seen.] [No alteration in the attenuation of the brain parenchyma can be identified to suggest acute or subacute ischemic change.] Mild small vessel ischemic changes are noted. [The ventricular system is symmetric and nondilated.] [The extracranial structures are grossly unremarkable.]IMPRESSION[No acute intracranial process can be identified.]Electronically signed by: CORA LARA (May 24, 2019 13:52:11)
[2019-05-24 14:09] LABS: BASOPHILS % (AUTO) 0.5 % (0.2-1.0); EOSINOPHILS % (AUTO) 0.3 % (0.9-2.9); HEMATOCRIT 33.8 % (36.0-47.0); HEMOGLOBIN 11.6 g/dL (12.0-16.0); LYMPHOCYTES # (AUTO) 2.7 X10^3/uL (1.3-2.9); LYMPHOCYTES % (AUTO) 38.4 % (21.0-51.0); MEAN CORPUSCULAR HEMOGLOBIN 31.5 pg (27.0-34.0); MEAN CORPUSCULAR HGB CONC 34.2 g/dL (33.0-35.0); MEAN CORPUSCULAR VOLUME 92.1 fL (80.0-100.0); MEAN PLATELET VOLUME 8.4 fL (7.4-11.0); MONOCYTES # (AUTO) 0.4 x10^3/uL (0.3-0.8); MONOCYTES % (AUTO) 6.4 % (0.0-13.0); NEUTROPHILS # (AUTO) 3.8 x10^3/uL (2.2-4.8); NEUTROPHILS % (AUTO) 54.4 % (42.0-75.0); PLATELET COUNT 152 X10^3/uL (150.0-450.0); RED BLOOD COUNT 3.67 X10^6/uL (3.5-5.4); RED CELL DISTRIBUTION WIDTH 14.2 % (11.6-16.5)
[2019-05-24 14:25] LABS: LACTIC ACID 0.9 mmol/L (0.4-2.0)
[2019-05-24 14:27] LABS: BLOOD UREA NITROGEN 9 mg/dL (7-18); CALCIUM 8.9 mg/dL (8.5-10.1); CARBON DIOXIDE 29.2 mmol/L (21-32); CHLORIDE 103 mmol/L (98-107); CREATININE 0.92 mg/dL (0.55-1.02); SODIUM 139 mmol/L (136-145); TROPONIN I < 0.02 ng/mL (0-1.5); eGFR NON BLACK RACES > 60 (>60)
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
[2019-05-24 14:49] LABS: ALANINE AMINOTRANSFERASE 37 Units/L (12-78); ALBUMIN 3.1 g/dL (3.4-5.0); ALKALINE PHOSPHATASE 55 Units/L (46-116); ASPARTATE AMINO TRANSFERASE 81 Units/L (15-37); COR CA(FOR HYPOALB) 9.6 mg/dL (8.5-10.1); TOTAL PROTEIN 6.9 g/dL (6.4-8.2)
[2019-05-24 14:50] LABS: CKMB % 0.6 % (<4); CREATINE KINASE 2192 Units/L (26-192)
[2019-05-24 14:52] LABS: CREATINE KINASE MB 13.5 ng/mL (0-4.0)
[2019-05-24] MEDS ORDERED: NS 1000 ML 1,000 ML ONE (15:27)
[2019-05-24] MEDS: NS 1000 ML 1,000 ML IV SCH (15:49)
[2019-05-24 16:12] LABS: BILIRUBIN,URINE NEGATIVE (NEGATIVE); BLOOD/HEMOGLOBIN,URINE NEGATIVE (NEGATIVE); GLUCOSE, URINE NEGATIVE (NEGATIVE); KETONES,URINE NEGATIVE (NEGATIVE); LEUKOCYTE ESTERASE ,URINE NEGATIVE (NEGATIVE); NITRITES,URINE NEGATIVE (NEGATIVE); PROTEIN,URINE NEGATIVE (NEGATIVE); UROBILINOGEN,URINE NORMAL (NORMAL)
[2019-05-24 16:26] LABS: APPEARANCE,URINE CLEAR (CLEAR); COLOR,URINE YELLOW (YELLOW)
[2019-05-24 16:28] LABS: RSV AG DETECTION NEGATIVE (NEGATIVE)
[2019-05-24 16:48] LABS: STREP A BY PCR NOT DETECTED (NOT DETECT)
[2019-05-24] MEDS: VIBRAMYCIN 100 MG in D5W 250 ML IV 250 ML IV SCH ×2 (17:57→21:50)
[2019-05-24] MEDS ORDERED: PROVENTIL NEB TX 0.083% 2.5MG/ 3ML IN PRN (18:36)
[2019-05-24] MEDS ORDERED: VENTOLIN or PROAIR HFA IN PRN (19:00)
[2019-05-24] MEDS ORDERED: ZANAFLEX PO PRN (19:20)
[2019-05-24] MEDS ORDERED: GLUCOPHAGE ONE (21:13)
[2019-05-24] MEDS: INDERAL TAB 10 MG PO SCH (21:50)
[2019-05-24] MEDS: SINEquan PO SCH (21:50)
[2019-05-24] MEDS: SINGULAIR TAB 10 MG PO SCH (21:50)
[2019-05-24] MEDS: REGLAN TAB 5 MG PO SCH (21:50)
[2019-05-24] MEDS: NORCO 7.5/325 MG TAB PO PRN (21:50)
[2019-05-24] MEDS: GLUCOPHAGE PO SCH (21:50)
[2019-05-24] MEDS: XANAX PO PRN (21:50)
[2019-05-24 23:54] LABS: TROPONIN I < 0.02 ng/mL (0-1.5)
[2019-05-24 23:55] LABS: CKMB % 0.5 % (<4); CREATINE KINASE MB 7.4 ng/mL (0-4.0)
[2019-05-24 23:56] LABS: CREATINE KINASE 1442 Units/L (26-192)
[2019-05-25] MEDS: NS 1000 ML 1,000 ML IV SCH ×4 (01:12→16:24)
[2019-05-25 02:52] VITALS: BMI 24.2
[2019-05-25 05:49] LABS: BASOPHILS % (AUTO) 0.3 % (0.2-1.0); EOSINOPHILS % (AUTO) 0.5 % (0.9-2.9); HEMATOCRIT 32.9 % (36.0-47.0); HEMOGLOBIN 11.2 g/dL (12.0-16.0); LYMPHOCYTES % (AUTO) 54.5 % (21.0-51.0); MEAN CORPUSCULAR HGB CONC 34.1 g/dL (33.0-35.0); MEAN CORPUSCULAR VOLUME 93.7 fL (80.0-100.0); MEAN PLATELET VOLUME 9.5 fL (7.4-11.0); MONOCYTES # (AUTO) 0.4 x10^3/uL (0.3-0.8); NEUTROPHILS % (AUTO) 37.7 % (42.0-75.0); PLATELET COUNT 146 X10^3/uL (150.0-450.0); RED BLOOD COUNT 3.51 X10^6/uL (3.5-5.4); RED CELL DISTRIBUTION WIDTH 14.2 % (11.6-16.5); WHITE BLOOD COUNT 5.4 X10^3/uL (3.6-10.0)
[2019-05-25 06:26] LABS: ALANINE AMINOTRANSFERASE 27 Units/L (12-78); ALBUMIN 2.5 g/dL (3.4-5.0); ALKALINE PHOSPHATASE 48 Units/L (46-116); ASPARTATE AMINO TRANSFERASE 51 Units/L (15-37); BLOOD UREA NITROGEN 7 mg/dL (7-18); CALCIUM 8.2 mg/dL (8.5-10.1); CARBON DIOXIDE 27.5 mmol/L (21-32); CHLORIDE 109 mmol/L (98-107); COR CA(FOR HYPOALB) 9.4 mg/dL (8.5-10.1); MAGNESIUM 1.1 mg/dL (1.7-2.9); SODIUM 143 mmol/L (136-145); TOTAL PROTEIN 5.9 g/dL (6.4-8.2); TROPONIN I < 0.02 ng/mL (0-1.5); eGFR NON BLACK RACES > 60 (>60)
[2019-05-25 06:34] LABS: CKMB % 0.5 % (<4); CREATINE KINASE 1022 Units/L (26-192); CREATINE KINASE MB 4.8 ng/mL (0-4.0)
[2019-05-25] MEDS ORDERED: MAGNESIUM SULFATE 1 GRAM/100 mL PREMIX 1 GM/100 ML BAG IV PRN (06:49)
[2019-05-25] MEDS ORDERED: GLUCOPHAGE ONE ×2 (08:25→20:05)
[2019-05-25] MEDS ORDERED: VENTOLIN or PROAIR HFA IN PRN (08:27)
[2019-05-25] MEDS: VIBRAMYCIN 100 MG in D5W 250 ML IV 250 ML IV SCH ×2 (08:56→21:29)
[2019-05-25] MEDS: GLUCOPHAGE PO SCH ×2 (08:57→21:22)
[2019-05-25] MEDS: REGLAN TAB 5 MG PO SCH ×4 (08:57→21:24)
[2019-05-25] MEDS: INDERAL TAB 10 MG PO SCH ×2 (08:57→21:23)
[2019-05-25] MEDS: NORCO 7.5/325 MG TAB PO PRN ×2 (08:58→21:32)
[2019-05-25] MEDS: SOLU-Medrol 125 MG VIAL IVP SCH ×3 (09:00→21:26)
[2019-05-25] MEDS ORDERED: DEXTROSE IV NR ×2 (09:00)
[2019-05-25] MEDS ORDERED: TRICOR TAB 160 MG PO SCH (09:00)
[2019-05-25] MEDS ORDERED: LIPITOR TAB 20 MG PO SCH (09:00)
[2019-05-25] MEDS ORDERED: ZyrTEC TAB 10 MG PO SCH (09:00)
[2019-05-25] MEDS ORDERED: ZESTORETIC 10/ 12.5MG PO SCH (09:00)
[2019-05-25] MEDS ORDERED: ESTRACE PO SCH (09:00)
[2019-05-25] MEDS ORDERED: MAGNESIUM SULFATE IV NR ×2 (09:00)
[2019-05-25] MEDS ORDERED: CYMBALTA PO SCH (09:00)
[2019-05-25] MEDS ORDERED: MICRO K EXTEN CAP 10 MEQ PO SCH (09:00)
[2019-05-25] MEDS ORDERED: PriLOSEC PO SCH (09:00)
[2019-05-25] MEDS: XANAX PO PRN ×3 (09:00→21:34)
--- NOTE | 2019-05-25 09:23 | RAD ---
HISTORYFALL, BRUISING, R/O FRACTURE HTN, ORTHOSTUDYLeft hip, two viewsCOMPARISONFINDINGSThere are postsurgical changes of both hips without evidence for hardware failure or loosening. No acute cortical disruption or malalignment of the left hip identified. The pelvic ring is grossly intact.IMPRESSIONNo evidence for acute left hip fracture or dislocation.Electronically signed by: NEYMAR ROSEN (May 25, 2019 09:21:54)
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
[2019-05-25 19:29] LABS: BILIRUBIN,URINE NEGATIVE (NEGATIVE); BLOOD/HEMOGLOBIN,URINE NEGATIVE (NEGATIVE); GLUCOSE, URINE 3+ (NEGATIVE); KETONES,URINE NEGATIVE (NEGATIVE); LEUKOCYTE ESTERASE ,URINE NEGATIVE (NEGATIVE); NITRITES,URINE NEGATIVE (NEGATIVE); PROTEIN,URINE NEGATIVE (NEGATIVE); UROBILINOGEN,URINE NORMAL (NORMAL)
[2019-05-25 19:31] LABS: APPEARANCE,URINE CLEAR (CLEAR); COLOR,URINE YELLOW (YELLOW)
[2019-05-25] MEDS: SINEquan PO SCH (21:25)
[2019-05-25] MEDS: SINGULAIR TAB 10 MG PO SCH (21:26)
[2019-05-26] MEDS: NS 1000 ML 1,000 ML IV SCH (00:47)
[2019-05-26] MEDS: SOLU-Medrol 125 MG VIAL IVP SCH (03:31)
[2019-05-26 04:28] VITALS: BP 128/79
[2019-05-26] MEDS: NORCO 7.5/325 MG TAB PO PRN (05:31)
[2019-05-26] MEDS: XANAX PO PRN (05:33)
[2019-05-26 06:08] LABS: BASOPHILS % (AUTO) 0.1 % (0.2-1.0); HEMATOCRIT 33.5 % (36.0-47.0); HEMOGLOBIN 11.3 g/dL (12.0-16.0); LYMPHOCYTES # (AUTO) 1.4 X10^3/uL (1.3-2.9); LYMPHOCYTES % (AUTO) 19.7 % (21.0-51.0); MEAN CORPUSCULAR HEMOGLOBIN 31.4 pg (27.0-34.0); MEAN CORPUSCULAR HGB CONC 33.7 g/dL (33.0-35.0); MEAN CORPUSCULAR VOLUME 93.2 fL (80.0-100.0); MEAN PLATELET VOLUME 9.1 fL (7.4-11.0); MONOCYTES # (AUTO) 0.1 x10^3/uL (0.3-0.8); MONOCYTES % (AUTO) 1.4 % (0.0-13.0); NEUTROPHILS # (AUTO) 5.6 x10^3/uL (2.2-4.8); NEUTROPHILS % (AUTO) 78.8 % (42.0-75.0); PLATELET COUNT 146 X10^3/uL (150.0-450.0); RED CELL DISTRIBUTION WIDTH 14.5 % (11.6-16.5); WHITE BLOOD COUNT 7.1 X10^3/uL (3.6-10.0)
[2019-05-26 06:13] LABS: BLOOD UREA NITROGEN 7 mg/dL (7-18); CARBON DIOXIDE 27.6 mmol/L (21-32); CHLORIDE 107 mmol/L (98-107); COR NA(FOR HYPERGLY) 144 mmol/L (136-145); CREATINE KINASE 502 Units/L (26-192); CREATININE 0.89 mg/dL (0.55-1.02); MAGNESIUM 2.1 mg/dL (1.7-2.9); SODIUM 142 mmol/L (136-145); eGFR NON BLACK RACES > 60 (>60)
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
== END 2019-05-26 09:20 | disposition left against medical advice (07) | DRG 202 ==
LOC: MED/SURG 13:15 → ER 13:15 → OBSVTOIN 17:25 → MED/SURG 18:14
PROVIDERS: ADMIT Internal Medicine; ATTEND Internal Medicine
DX: J20.9 Acute bronchitis, unspecified; W18.39XA Other fall on same level, initial encounter; I10 Essential (primary) hypertension; Z53.29 Procedure and treatment not carried out because of patient's decision for other reasons; Y92.481 Parking lot as the place of occurrence of the external cause; Z11.59 Encounter for screening for other viral diseases; E11.65 Type 2 diabetes mellitus with hyperglycemia; R06.02 Shortness of breath; J44.1 Chronic obstructive pulmonary disease with (acute) exacerbation; M62.82 Rhabdomyolysis; V89.2XXA Person injured in unspecified motor-vehicle accident, traffic, initial encounter; E83.42 Hypomagnesemia; R40.4 Transient alteration of awareness